=== PATIENT | female | born 1970 | race Caucasian/White ===

== ENCOUNTER → 2017-03-26 | Outpatient (CLI) | payer BC | END | disposition home or self-care (01) | LOC: C.PAPS 08:37 | PROVIDERS: ATTEND Obstetrics & Gynecology | DX: Z01.419 Encounter for gynecological examination (general) (routine) without abnormal findings (principal) ==

== ENCOUNTER → 2017-06-21 | Outpatient (CLI) | payer BC ==
--- NOTE | 2017-06-21 16:01 | DIAGNOSTIC IMAGING REPORT ---
(RENAL)RETROPERITONEA COMP HISTORY: Flank pain Hematuria, abd Distension, hx OF STONES COMPARISON: None. FINDINGS: Right kidney: Mild right renal hydronephrosis. Maximum linear dimension 13 cm. Normal corticomedullary differentiation and cortical thickness. Left kidney: Maximum dimension 10.8 cm. No evidence for hydronephrosis. Normal corticomedullary differentiation and cortical thickness. Bladder: No bladder wall thickening. The bilateral ureteral jets were identified. IMPRESSION: Mild right renal hydronephrosis. Normal left kidney. The above report was generated using voice recognition software. It may contain grammatical, syntax or spelling errors. Electronically signed by: Watson Butler M.D. 06/21/2017 4:00 PM Dictated Date/Time: 06/21/2017 3:59 PM
== END | disposition home or self-care (01) ==
LOC: C.ULTR 15:12
PROVIDERS: ATTEND Nurse Practitioner Family
DX: R14.0 Abdominal distension (gaseous) (principal); R31.9 Hematuria, unspecified; Z87.442 Personal history of urinary calculi

== ENCOUNTER → 2017-06-22 | Outpatient (CLI) | payer BC ==
--- NOTE | 2017-06-25 12:28 | MAMMOGRAPHY REPORT ---
BILATERAL DIGITAL SCREENING MAMMOGRAM TOMOSYNTHESIS WITH CAD: 06/22/2017 TECHNIQUE: Breast tomosynthesis in addition to standard 2D mammography was performed. Current study was also evaluated with a Computer Aided Detection (CAD) system. COMPARISON: Comparison is made to exams dated: 06/16/2016 mammogram, 05/26/2015 mammogram, 05/12/2014 ma mmogram, 05/01/2013 mammogram, 03/01/2012 mammogram, and 08/05/2010 ultrasound - [facility] enter. BREAST COMPOSITION: There are scattered areas of fibroglandular density in both breasts. FINDINGS: No suspicious masses, calcifications, or areas of architectural distortion are noted in ei ther breast. There has been no significant interval change compared to prior exams. IMPRESSION: ACR BI-RADS CATEGORY 1: NEGATIVE There is no mammographic evidence of malignancy. A 1 year screening mammogram is recommended. The pa tient will receive written notification of the results. Approximately 10% of breast cancers are not detected with mammography. A negative mammographic report should not delay biopsy if a clinically suggestive mass is present. Connie Dawson M.D. ah/:06/22/2017 13:15:37 Cookie Mixer Helper: Ami ALMANZA(R)(M), [facility] letter sent: Normal 1/2 BI-RADS Code: ACR BI-RADS Category 1: Negative
== END | disposition home or self-care (01) ==
LOC: C.MAMM 07:49
PROVIDERS: ATTEND Nurse Practitioner Family
DX: Z12.31 Encounter for screening mammogram for malignant neoplasm of breast (principal)

== ENCOUNTER → 2017-07-03 | Outpatient (CLI) | payer BC ==
--- NOTE | 2017-07-03 14:47 | DIAGNOSTIC IMAGING REPORT ---
EXAMINATION: RENAL ULTRASOUND CLINICAL HISTORY: HEMATURIA COMPARISON STUDY: 06/21/2017 FINDINGS: The right kidney measures 12.6 cm. The left kidney measures 10.2 cm. There is a mildly prominent right renal pelvis. There is no significant calyceal dilatation. There are no renal masses. No bladder abnormalities are visualized. Bilateral ureteral jets were visualized. IMPRESSION : Mildly prominent right renal pelvis. No significant obstruction is felt to be present as bilateral ureteral jets were delineated. No renal masses were visualized. Electronically signed by: Eddi Silver M.D. 07/03/2017 2:46 PM Dictated Date/Time: 07/03/2017 2:44 PM
== END | disposition home or self-care (01) ==
LOC: C.ULTR 13:13
PROVIDERS: ATTEND Nurse Practitioner Family
DX: N13.30 Unspecified hydronephrosis (principal); R31.9 Hematuria, unspecified

== ENCOUNTER → 2018-06-28 | Outpatient (CLI) | payer OTHER ==
--- NOTE | 2018-06-28 15:26 | MAMMOGRAPHY REPORT ---
BILATERAL DIGITAL SCREENING MAMMOGRAM TOMOSYNTHESIS WITH CAD: 06/28/2018 TECHNIQUE: The study was acquired using full field digital technology and interpreted from soft copy. Breast tomosynthesis in addition to standard 2D mammography was performed. Current study was also ev aluated with a Computer Aided Detection (CAD) system. COMPARISON: Comparison is made to exams dated: 06/22/2017 mammogram, 06/16/2016 mammogram, 05/26/2015 toney mogram, 05/12/2014 mammogram, 05/01/2013 mammogram, and 03/01/2012 mammogram - [facility]. BREAST COMPOSITION: There are scattered areas of fibroglandular density in both breasts. FINDINGS: No suspicious masses, calcifications, or areas of architectural distortion are noted in either breast . There has been no significant interval change compared to prior exams. Asymmetry in the right suba reolar breast appears stable on cc views compared to the May 2016 exam and therefore felt to represe nt normal fibroglandular tissue. IMPRESSION: ACR BI-RADS CATEGORY 1: NEGATIVE There is no mammographic evidence of malignancy. A 1 year screening mammogram is recommended.( [id number]) The patient will receive written notification of the results. Some breast cancers are not detected with mammography. A negative mammographic report should not florencia y biopsy if a clinically suggestive mass is present. Connie Dawson M.D. ah/:06/28/2018 08:36:12 Dairy Bar Manager: RT Renetta(R)(M), [facility] letter sent: Normal 1/2 BI-RADS Code: ACR BI-RADS Category 1: Negative
== END | disposition home or self-care (01) ==
LOC: C.MAMM 07:57
PROVIDERS: ATTEND Obstetrics & Gynecology
DX: Z12.31 Encounter for screening mammogram for malignant neoplasm of breast (principal)